=== PATIENT | female | born 1965 | race Caucasian/White ===

== ENCOUNTER → 2017-05-06 | Outpatient (CLI) | payer BC ==
--- NOTE | 2017-05-06 16:48 | RAD ---
3 view left knee study Indications: Left knee pain for months. Findings: No acute fracture or dislocation or osteolytic process is seen. No significant arthritic change is seen. IMPRESSION: No significant osseous abnormality.
== END | disposition home or self-care (01) ==
LOC: DXRAD 15:26
PROVIDERS: ATTEND General Practice
DX: M25.562 Pain in left knee (principal)
CPT/HCPCS: 73562

== ENCOUNTER 2019-09-22 13:10 | Emergency (ER) | payer SELFPAY ==
[~2019-09-22] VITALS: Ht 149.9 cm; Wt 80.9 kg
[2019-09-22 13:15] VITALS: BP 4/11
== END 2019-09-22 13:21 | disposition left against medical advice (07) ==
LOC: ER 13:10
DX: S60.454A Superficial foreign body of right ring finger, initial encounter (principal); Z53.21 Procedure and treatment not carried out due to patient leaving prior to being seen by health care provider; W49.04XA Ring or other jewelry causing external constriction, initial encounter; Y93.89 Activity, other specified; Y92.89 Other specified places as the place of occurrence of the external cause; Y99.8 Other external cause status

== ENCOUNTER → 2019-12-01 | Outpatient (CLI) | payer BC ==
[~2019-12-01] MED LIST: LOSA1TAB25 PO
== END ==
LOC: LAB 08:20
PROVIDERS: ATTEND Nurse Anesthetist, Certified Registered
DX: Z01.812 Encounter for preprocedural laboratory examination (principal); Z20.828 Contact with and (suspected) exposure to other viral communicable diseases
CPT/HCPCS: U0003-CS

== ENCOUNTER → 2019-12-05 | Day surgery (SDC) | payer BC ==
[~2019-12-05] MED LIST changes: +IPRATRPIUM/ALBUTEROL 0.5/2.5MG 3 ML NEBU. NEB PRN; +IV RINGERS SOLUTION,LACTATED 1,000 ML IV SCH; +MIDAZOLAM HCL PF 2 MG/2 ML VIAL. IV ONE; +ONDANSETRON PF 4 MG/2 ML VIAL. IV PRN; +PROPOFOL 10,000 MCG/ML (20ML) VIAL IV ONE
[2019-12-05 11:08] VITALS: BP 110/70
--- NOTE | 2019-12-06 15:08 | PATHOLOGY ---
[facility] Accession Number: [id number] . 01 Material submitted: . sigmoid colon - SIGMOID POLYP . 01 Clinical history: . COLONOSCOPY . 02 Diagnosis: Colon biopsy, sigmoid polyp: - Hyperplastic polyp, with mild acute and chronic inflammation. ([facility] 12/06/2019) [facility] 12/06/2019 1336 Local . 02 Comment: There are no adenomatous changes or evidence of malignancy. ([facility] 12/06/2019) . 02 Electronically signed: . Jose Diallo MD, Pathologist NPI- [id number] . 01 Gross description: . The specimen is received in formalin, labeled "Darner, Savi, sigmoid polyp" and consists of a fragment of pink-perales tissue measuring 0.6 x 0.4 x 0.1 cm which is entirely submitted in A1. ([facility]; 12/05/2019) [facility] 12/05/2019 1738 Local . 02 Pathologist provided ICD-10: K63.5, K52.9 . 02 CPT . 657701 Specimen Comment: A courtesy copy of this report has been sent to [phone] Specimen Comment: [phone] Specimen Comment: Report sent to / DR PORTILLO Performed at: 01 [facility] [address], [place] [id number] MD Gal Franklin MD Phone: [phone] Performed at: 02 [facility] [address] [place], [place] [id number] MD Jose Diallo MD Phone: [phone]
== END | disposition home or self-care (01) ==
LOC: SURG 08:56
PROVIDERS: ATTEND Emergency Medicine
DX: Z12.11 Encounter for screening for malignant neoplasm of colon (principal); K52.89 Other specified noninfective gastroenteritis and colitis; K63.5 Polyp of colon; G47.33 Obstructive sleep apnea (adult) (pediatric); I10 Essential (primary) hypertension; Z87.891 Personal history of nicotine dependence; Z90.49 Acquired absence of other specified parts of digestive tract; Z79.899 Other long term (current) drug therapy; Z98.890 Other specified postprocedural states; Z90.710 Acquired absence of both cervix and uterus
CPT/HCPCS: 45380; 88305; J2704; J7120